=== PATIENT | male | born 1945 | race Caucasian/White ===

== ENCOUNTER 2019-07-09 15:40 | Observation (INO) | payer MEDICARE, BC ==
[2019-07-09] MEDS ORDERED: Sodium Chloride 0.9% 10 ML Syringe FLUSH PRN (16:24)
[2019-07-09] MEDS ORDERED: Acetaminophen 650 MG Tab.ER PO PRN (17:23)
[2019-07-09 17:38] LABS: ANION GAP 11.3 mmol/L (5-15); CHLORIDE,CL 106 mmol/L (98-115); SODIUM,NA 142 mmol/L (136-145)
--- NOTE | 2019-07-09 18:29 | HP ---
HISTORY OF PRESENT ILLNESS: This is a 74-year-old male who presented to the clinic today with bloody stool and rectal bleeding. The patient states that yesterday morning he had a bloody stool and since then he has been having gas with blood, but no stool. He most recently had a trip to the bathroom before and after lunch without any blood in his urine or his stool. This was brought to the attention of Dr. Maria R Toledo yesterday. The patient did have a hemoglobin yesterday which was 13.1. It was repeated today and was found to be 10.8. The patient does have a past history of an anal fissure. I will outline his recent medical history in the following paragraphs. While he was in a rehab unit, he did have some constipation which warranted 2 suppositories. He did have quite a bit of pain with the insertion of one of the suppositories and was told that "his fissure was acting up" by one of the nursing staff. 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 This was found to have been caused from undiagnosed atrial fibrillation. He was hospitalized at [facility] in [place], [place], from 05/18 through 06/11. He was then transferred to [facility] and spent time in that unit from 06/11/2019 through 07/02/2019. He was discharged and transferred to the [facility] for further rehabilitation including physical therapy, occupational and speech therapy. The deficits from his stroke are speech difficulties. He knows what he wants to say, but has a difficult time saying it. He often will verbalize what he is intending to say, but it takes a long time. He does have a flaccid right upper extremity. He has some weakness of the right lower extremity, however, he is able to transfer fairly well. He was diagnosed with atrial fibrillation as a cause of the CVA. He is currently on aspirin as well as Eliquis. He is also taking metoprolol. He has hypertension and is currently being treated with amlodipine as well as lisinopril. He was diagnosed with diabetes mellitus and is now taking metformin. He has gastroesophageal reflux disease and needs GI protection, therefore he is taking pantoprazole. He has hypercholesterolemia and is taking atorvastatin. He has had issues with constipation and is taking senna. He is also on Colace. He often refuses the 2nd dose of Colace in the day. He has recently had some diarrhea, which may have aggravated the rectal fissure. He is taking dietary supplementation of thiamine as well as vitamin D. He is also taking a multivitamin. He has insomnia and is taking melatonin. PHYSICAL EXAMINATION: VITAL SIGNS: Temperature is 97.8, pulse 78, respirations 16, blood pressure 100/58. His O2 saturation is 99% on room air. SKIN: Warm and dry to touch. CARDIAC: An irregularly irregular rhythm with a controlled rate of 72 beats per minute apically. There is no murmur, click, or gallop auscultated. LUNGS: Clear without rales, wheezes, or rhonchi. ABDOMEN: Soft, nontender with bowel sounds present in all 4 quadrants. RECTAL: Examination of the anal opening, he does have a large fissure at the 6 o'clock position of his anal opening. There is some dry blood. There is no active bleeding. I do not appreciate any external or internal hemorrhoids at this time. He does have some expressive aphasia, which is improving. EXTREMITIES: He has right upper extremity which is flaccid and in a sling. Left upper extremity is strong. He has some mild weakness of the right lower extremity, however, transfers well. IMPRESSION: 1. Rectal bleeding, possibly from an inflamed rectal fissure. He was admitted to observation. He will be treated with Proctofoam as well as Anusol suppositories. If he has no rectal bleeding overnight, he will be transferred back to the [facility] tomorrow. 2. Recent cerebrovascular accident secondary to atrial fibrillation. He is on Eliquis and aspirin as well as metoprolol. We will hold the aspirin and continue the Eliquis while in the hospital. 3. Diabetes mellitus. He is taking metformin. 4. Constipation. We will continue senna as well as Colace. 5. Hypercholesterolemia. He is taking atorvastatin. 6. Gastroesophageal reflux disease. He is taking pantoprazole for GI protection. Lab work will be drawn upon admission to include a CBC and a CMP. CBC will be repeated in the morning. Saline lock will be inserted. I have discussed the admission with Dr. Maria R Toledo, who is the patient's primary care provider. She has not had the opportunity to see the patient as of yet. She was to see him tomorrow on [facility] rounds. /[id number]/MODL
[2019-07-09] MEDS: metFORMIN 500 MG Tab.ER PO SCH (22:53)
[2019-07-09] MEDS: Metoprolol Tartrate 25 MG Tab PO SCH (22:53)
[2019-07-09] MEDS: Hydrocortisone Acetate 25 MG Supp RECTAL SCH (22:53)
[2019-07-09] MEDS: Docusate Sodium 100 MG Cap PO SCH (22:54)
[2019-07-09] MEDS: Gabapentin 300 MG Cap PO SCH (22:54)
[2019-07-09] MEDS: Apixaban 5 MG Tab PO SCH (22:55)
[2019-07-09] MEDS: Hydrocortisone 2.5% Crm 30 GM Tube TOP SCH (22:55)
[2019-07-10] MEDS ORDERED: Pantoprazole 40 MG Tab.CR PO SCH (07:00)
[2019-07-10] MEDS ORDERED: Lisinopril 20 MG Tab PO SCH (09:00)
[2019-07-10] MEDS ORDERED: Thiamine 100 MG Tab PO SCH (09:00)
[2019-07-10] MEDS ORDERED: Polyvinyl Alcohol 1.4% Ophth Soln 15 ML Bottle EYERT SCH (09:00)
[2019-07-10] MEDS ORDERED: atorvaSTATin 40 MG Tab PO SCH (09:00)
[2019-07-10] MEDS ORDERED: amLODIPine 2.5 MG Tab PO SCH (09:00)
[2019-07-10] MEDS ORDERED: ERGOCALCIFEROL PO SCH (09:00)
[2019-07-10] MEDS ORDERED: Multivitamins with Minerals/Iron/Folic Acid/Lycopene Tab PO SCH (09:00)
[2019-07-10] MEDS: Hydrocortisone Acetate 25 MG Supp RECTAL SCH (09:13)
[2019-07-10] MEDS: Gabapentin 300 MG Cap PO SCH (09:18)
[2019-07-10] MEDS: Docusate Sodium 100 MG Cap PO SCH (09:18)
[2019-07-10] MEDS: Apixaban 5 MG Tab PO SCH (09:18)
[2019-07-10] MEDS: metFORMIN 500 MG Tab.ER PO SCH (09:19)
[2019-07-10] MEDS: Hydrocortisone 2.5% Crm 30 GM Tube TOP SCH (09:24)
[2019-07-10] MEDS: Metoprolol Tartrate 25 MG Tab PO SCH (09:26)
--- NOTE | 2019-07-13 09:23 | DISCH ---
BRIEF HISTORY AND ESSENTIAL PHYSICAL FINDINGS: This is a 74-year-old male, who presented to the clinic yesterday with bloody stool and rectal bleeding. The patient was found to have a bleeding/inflamed rectal fissure. He was treated with Proctofoam topically to the anal opening as well as Anusol suppository. His aspirin was held. He has had no rectal bleeding overnight. He had a stool this morning which was negative for blood. He will be discharged back to the alf. The patient is very motivated to continue with his physical, occupational, and speech therapy. He did have lab work today. Hemoglobin was stable at 10.4. His hemoglobin yesterday was 10.8. His hemoglobin on 07/08/2019 was 13.1. I have informed the patient that I do not believe that this will be the last time he has problems with this rectal fissure as it is quite large. The patient had an unfortunate turn of life events on 05/18/2019 when he suffered a stroke. This was caused from undiagnosed atrial fibrillation. He was hospitalized at [facility] in [place] from 05/18/2019 through 06/11/2019. He was then transferred to [facility] in [place], [place] and spent that time in that unit until 07/02/2019. He does have significant deficits from his stroke. The most significant being speech difficulties. He does have some expressive aphasia. He knows exactly what he wants to say but has a hard time saying it. He is working hard with Speech Therapy to try to regain as much speech as possible. He also has a flaccid right upper extremity. He does have some weakness of the right lower extremity; however, he is able to transfer and ambulate fairly well. PHYSICAL EXAM ON DISCHARGE: VITAL SIGNS: His vital signs have been stable. SKIN: Warm and dry to touch. CARDIAC: Exam reveals an irregularly irregular cardiac rhythm with a controlled rate of 75 beats per minute. There is no murmur, click, or gallop auscultated. LUNGS: Clear without rales, wheezes, or rhonchi. ABDOMEN: Soft, nontender. FINAL DIAGNOSIS/DISCHARGE DIAGNOSIS: 1. Rectal bleeding, possibly from an inflamed rectal fissure. He was admitted for observation. He was treated with Proctofoam. He has had no rectal bleeding overnight. He had a stool this morning which was negative for blood. 2. Recent cerebrovascular accident secondary to undiagnosed atrial fibrillation. He is currently taking Eliquis and aspirin as well as metoprolol. He will continue all upon his return to the alf. The rate of his atrial fibrillation is well controlled. 3. Diabetes mellitus. This is also a new diagnosis over the past two months. He will continue metformin. 4. Constipation. He will continue senna as well as Colace. It is important that we keep his stool soft and regular due to the rectal fissure. 5. Hypercholesterolemia. He is taking atorvastatin. 6. He is taking pantoprazole for GI protection. FOLLOW-UP RECOMMENDATIONS: This is a delightful 74-year-old gentleman who unfortunately sustained a life-changing CVA in May of 2019. He is very motivated to continue his physical therapy and hopefully return to home living situation in the near future. It was delightful to meet him and his family and we will continue to follow him at the alf. /[id number]/MODL
--- NOTE | 2019-07-13 09:25 | DISCH ---
ADDENDUM This is an addendum to the discharge summary. This is a [id number] admission for the snf at [facility]. He will be seen in 30 days for a recertification. /[id number]/MODL
== END 2019-07-10 10:15 ==
LOC: KA.MS 15:40
DX: K62.5 Hemorrhage of anus and rectum (principal); R19.5 Other fecal abnormalities; E11.9 Type 2 diabetes mellitus without complications; K59.00 Constipation, unspecified; E78.00 Pure hypercholesterolemia, unspecified; Z79.899 Other long term (current) drug therapy; Z86.73 Personal history of transient ischemic attack (TIA), and cerebral infarction without residual deficits; Z79.84 Long term (current) use of oral hypoglycemic drugs
CPT/HCPCS: 36415; 80053; 83735; 85025; A9270-GY; G0378